=== PATIENT | female | born 1965 | race Caucasian/White ===

== ENCOUNTER → 2018-10-15 | Outpatient (CLI) | payer OTHER ==
[2014-02-18 14:01] VITALS: BP 133/60
--- NOTE | 2018-10-15 14:59 | RAD ---
DATE: 10/15/2018. EXAM: DIGITAL SCREEN BILAT W/CAD HISTORY: Routine screening. COMPARISON: None This study was interpreted with the benefit of Computerized Aided Detection (CAD). FINDINGS: Breast Density: SCATTERED The breast parenchyma shows scattered fibroglandular densities. Breast parenchyma level B. The skin and nipples are within normal limits. No suspicious calcifications, spiculated mass or area of architectural distortion. IMPRESSION: No mammographic evidence of malignancy. BI-RADS CATEGORY: 1 NEGATIVE RECOMMENDED FOLLOW-UP: 12M 12 MONTH FOLLOW-UP PQRS compliance statement: Patient information was entered into a reminder system with a target due date for the next mammogram. Mammography is a sensitive method for finding small breast cancers, but it does not detect them all and is not a substitute for careful clinical examination. A negative mammogram does not negate a clinically suspicious finding and should not result in delay in biopsying a clinically suspicious abnormality. "Our facility is accredited by the [employer] Mammography Program."
== END | disposition home or self-care (01) ==
LOC: MAMMO 10:17
PROVIDERS: ATTEND Physician Assistant
DX: Z12.31 Encounter for screening mammogram for malignant neoplasm of breast (principal)
CPT/HCPCS: 77067

== ENCOUNTER → 2018-11-14 | Outpatient (CLI) | payer OTHER ==
[2014-02-18 14:01] VITALS: BP 133/60
[~2018-11-14] MED LIST: IOHEXOL 240 MG/ML 50ML VIAL. PO ONE
--- NOTE | 2018-11-14 10:37 | RAD ---
Examination: CT abdomen without contrast. History: Abdominal pain, dysphagia, hiatal hernia COMPARISON: None available TECHNIQUE: Axial CT images of the abdomen was performed without IV contrast. Coronal sagittal reformats are performed. Exposure: One or more of the following individualized dose reduction techniques were utilized for this examination: 1. Automated exposure control 2. Adjustment of the mA and/or kV according to patient size 3. Use of iterative reconstruction technique FINDINGS: Mild decreased attenuation noted in the liver likely hepatic steatosis. The visualized spleen, adrenals grossly appears unremarkable. The gallbladder is mildly distended. The stomach is mildly distended. The visualized pancreas grossly appears unremarkable. The small bowel is nondilated. Questionable mild fat stranding identified about the bilateral kidneys. Tiny punctate calculus right kidney. Moderate compression change of T12 vertebral body with kyphoplasty changes. IMPRESSION: 1. Questionable minimal fat stranding identified about the bilateral kidneys, nonspecific, correlate for urinary tract infection. Tiny punctate 1 mm calculus right kidney. 2. Hepatic steatosis. Electronically signed by: Edward Patricio MD (11/14/2018 10:34 AM) [id number]
== END | disposition home or self-care (01) ==
LOC: CT 09:14
PROVIDERS: ATTEND Physician Assistant Medical
DX: K76.0 Fatty (change of) liver, not elsewhere classified (principal); N20.0 Calculus of kidney; K82.8 Other specified diseases of gallbladder; K31.89 Other diseases of stomach and duodenum; G95.29 Other cord compression; K44.9 Diaphragmatic hernia without obstruction or gangrene; J45.909 Unspecified asthma, uncomplicated
CPT/HCPCS: 74150

== ENCOUNTER → 2019-01-08 | Day surgery (SDC) | payer OTHER ==
[~2019-01-08] MED LIST changes: +ACETAMINOPHEN 325 MG TABLET PO PRN; +ALBUTEROL SULFATE 2.5 MG/3 ML NEBU. NEB PRN; +ATROPINE 0.5 MG/5 ML DISP.SYRIN. IV PRN; +BUSP5TAB PO; +ESTR1TAB15 PO; +FESO8TAB PO; -IOHEXOL 240 MG/ML 50ML VIAL. PO ONE; +IV RINGERS SOLUTION,LACTATED 1,000 ML IV SCH; +LEXAPRO5 MG PO; +LIDOCAINE 2% PF Vial for OR 5 ML VIAL. ONE; +LURA20TA PO; +METH36TA5 PO; +MIDAZOLAM HCL PF 2 MG/2 ML VIAL. IV PRN; +ONDANSETRON PF 4 MG/2 ML VIAL. IV PRN; +PHENOL ORAL SPRAY 177ML BOTTLE. MM PRN; +PROPOFOL 40 ML IV ONE; +diphenhydrAMINE 50 MG/ML VIAL IV PRN
[2019-01-08 12:01] VITALS: BP 159/83
== END ==
LOC: SURG 09:29
PROVIDERS: ATTEND Internal Medicine Gastroenterology
DX: Z12.11 Encounter for screening for malignant neoplasm of colon (principal); K63.5 Polyp of colon; F32.9 Major depressive disorder, single episode, unspecified; J45.909 Unspecified asthma, uncomplicated; G47.30 Sleep apnea, unspecified; F41.9 Anxiety disorder, unspecified; E66.01 Morbid (severe) obesity due to excess calories; Z68.42 Body mass index [BMI] 45.0-49.9, adult; Z72.89 Other problems related to lifestyle; Z90.710 Acquired absence of both cervix and uterus
CPT/HCPCS: 45385; J2704; J7120; J2001

== ENCOUNTER → 2019-04-15 | Outpatient (CLI) | payer OTHER ==
[2019-01-08 12:01] VITALS: BP 159/83
[~2019-04-15] MED LIST changes: -ACETAMINOPHEN 325 MG TABLET PO PRN; -ALBUTEROL SULFATE 2.5 MG/3 ML NEBU. NEB PRN; -ATROPINE 0.5 MG/5 ML DISP.SYRIN. IV PRN; -IV RINGERS SOLUTION,LACTATED 1,000 ML IV SCH; -LIDOCAINE 2% PF Vial for OR 5 ML VIAL. ONE; -MIDAZOLAM HCL PF 2 MG/2 ML VIAL. IV PRN; -ONDANSETRON PF 4 MG/2 ML VIAL. IV PRN; -PHENOL ORAL SPRAY 177ML BOTTLE. MM PRN; -PROPOFOL 40 ML IV ONE; -diphenhydrAMINE 50 MG/ML VIAL IV PRN
--- NOTE | 2019-04-15 15:33 | RAD ---
Gastric Emptying Study Indication: Nausea and vomiting 6-8 months. Comparison: CT abdomen without contrast, November 14, 2018. Procedure: Anterior and posterior projection static images are obtained over the stomach following oral administration of 2 mCi of 99 M technetium sulfur colloid in a solid meal (egg and toast). Time points include an immediate baseline, and 1, 2, 3, and 4 hours post ingestion. Findings: There is progressive emptying of the stomach on sequential images. No reflux into the esophagus is identified. Percentage retention at one hour is 69% (normal 34.8-91%). Two hours 39% (normal 2.7-60%). Three hours 15% (normal 0.5-28%). Four hours 6% (normal 0-10%). The T1/2 of emptying is 93 minutes. 45-90 minutes is considered normal. IMPRESSION: Normal 4 hour protocol gastric emptying study. Electronically signed by: Roderick Demarco MD (04/15/2019 3:30 PM) [id number]
== END | disposition home or self-care (01) ==
LOC: NM 08:26
PROVIDERS: ATTEND Internal Medicine Gastroenterology
DX: R11.2 Nausea with vomiting, unspecified (principal)
CPT/HCPCS: 78264; A9541